=== PATIENT | male | born 1975 | race Caucasian/White ===

== ENCOUNTER 2021-12-24 20:37 | Emergency (ER) | payer SELFPAY ==
[2021-12-25 02:30] LABS: HEMOGLOBIN 15.6 gm/dl (14.0-17.5); RED BLOOD COUNT 5.2 M/UL (4.20-5.50); WHITE BLOOD COUNT 15.9 K/UL (4.5-11.0)
[2021-12-25 02:54] LABS: BUN/CREATININE RATIO 15 (0-10)
== END 2021-12-25 06:20 | disposition home or self-care (01) ==
LOC: ER1 20:37
PROVIDERS: Physician Assistant
DX: M51.27 Other intervertebral disc displacement, lumbosacral region (principal); I10 Essential (primary) hypertension; E11.9 Type 2 diabetes mellitus without complications
CPT/HCPCS: 72132; 80048; 80307; 81001; 83605; 85025; 86140; 87040; 93005; 96372; 99284; J1885; J7030; Q9967